=== PATIENT | female | born 1965 | race Caucasian/White ===

== ENCOUNTER → 2020-08-14 13:49 | Outpatient (REF) | payer OTHER, SELFPAY | LOC: ANHLAB 13:49 | PROVIDERS: PCP Family Medicine; Visit Provider Nurse Practitioner | DX: D22.39 Melanocytic nevi of other parts of face (principal) | CPT/HCPCS: 88305 ==

== ENCOUNTER → 2023-07-23 06:55 | Outpatient (CLI) | payer BC, SELFPAY ==
--- NOTE | ~2023-07-23 | MR_ITS ---
MRI of the cervical spine Clinical History: Radiculopathy Technique: Axial T2-weighted and gradient images, and sagittal T1-weighted, T2-weighted, and STIR marnie ges were acquired. Findings: There is straightening of the normal cervical lordosis. No fracture or sublocation seen. No suspicious bone marrow signal abnormality seen. At C2-C3, there is no significant disc bulge or herniation. No spinal canal stenosis, cord compressio n, or neural foraminal narrowing. At C3-C4, there is minimal disc osteophyte complex and minimal facet joint degenerative change. No fr ank spinal canal stenosis or cord compression. Neural foramina are preserved. At C4-C5, there is mild disc osteophyte complex, with minimal canal stenosis but no swathi cord compre ssion. There is probable minimal bilateral neural foraminal narrowing, right worse than left. At C5-C6, there is no disc bulge or herniation. There is partial fusion across the disc space. There is probable mild left neural foraminal narrowing. Right neural foramen preserved. No spinal canal jessica nosis or cord compression. At C6-C7, there is minimal disc bulge. There is mild canal stenosis without swathi cord compression. T here is mild left neural foraminal narrowing. Right neural foramen preserved. No abnormal signal seen in the spinal cord. Paravertebral soft tissues are unremarkable. Impression: Mild degenerative sclerosis, as above. Reviewed, dictated and finalized at [facility]. [employer] Impression: Mild degenerative sclerosis, as above.
== END ==
PROVIDERS: PCP Nurse Practitioner; Visit Provider Nurse Practitioner
DX: M54.12 Radiculopathy, cervical region (principal)
CPT/HCPCS: 72141

== ENCOUNTER 2024-01-25 13:41 | Outpatient (CLI) | payer BC, SELFPAY ==
--- NOTE | ~2024-01-25 | CT_ITS ---
EXAMINATION: CT cervical spine wo con DATE: 01/25/2024 14:08 INDICATION: Bilateral extremity weakness. Neck pain. TECHNIQUE: Computed tomography (CT) of the cervical spine was performed without intravenous contrast. Automated exposure control and iterative reconstruction technique were employed. The dose-length pro duct was 500.99 mGy-cm. COMPARISON: None FINDINGS: There is 10 degrees dextroscoliosis of cervicothoracic spine. There is kyphosis of cervical spine. There is developmental anterior and posterior fusion at C5-C6. Vertebral body heights are nor mal. There is mildly decreased disc height at C6-C7. The following disc levels are specifically discu ssed: C2-C3: There is mild bilateral uncovertebral joint osteoarthritis. There is mild bilateral facet join t osteoarthritis. There is no neural foraminal stenosis. There is no central canal stenosis. C3-C4: There is mild right uncovertebral joint osteoarthritis. There is mild bilateral facet joint os teoarthritis. There is mild right neural foraminal stenosis. There is no central canal stenosis. C4-C5: There is no uncovertebral joint osteoarthritis. There is mild bilateral facet joint osteoarthr itis. There is no neural foraminal stenosis. There is no central canal stenosis. C5-C6: There is no uncovertebral joint hypertrophy. There is no facet joint hypertrophy. There is no neural foraminal stenosis. There is no central canal stenosis. C6-C7: There is mild right and severe left uncovertebral joint osteoarthritis. There is moderate righ t and mild left facet joint osteoarthritis. There is mild left neural foraminal stenosis. There is mi ld central canal stenosis. C7-T1: There is no uncovertebral joint osteoarthritis. There is severe bilateral facet joint osteoart hritis. There is mild bilateral neural foraminal stenosis. There is no central canal stenosis. IMPRESSION: 1. Mild cervical spondylosis. 2. Cervicothoracic dextroscoliosis. Cervical kyphosis. 3. Anterior and posterior fusion at C5-C6. Reviewed, dictated and finalized at location [facility].
== END 2024-01-25 13:42 | disposition home or self-care (01) ==
PROVIDERS: PCP Nurse Practitioner
DX: M54.2 Cervicalgia (principal); M43.02 Spondylolysis, cervical region; M41.82 Other forms of scoliosis, cervical region; Z98.1 Arthrodesis status
CPT/HCPCS: 72125